=== PATIENT | female | born 1950 | race Caucasian/White ===

== ENCOUNTER 2019-05-28 17:50 | Inpatient (IN) | payer BC ==
[2019-05-28] VITALS (16 sets, daily range): BP systolic 94–182; BP diastolic 36–86
[~2019-05-28] VITALS: Ht 165.1 cm; Wt 56.7 kg
[2019-05-28 18:10] LABS: HEMATOCRIT 36.6 % (37.0-47.0); HEMOGLOBIN 11.9 gm/dL (12.0-15.0); MCH 29.7 pg (26.0-34.0); MCHC 32.4 g/dL (28.0-37.0); MCV 91.6 fL (80.0-100.0); PLATELET COUNT 367 thou/uL (150-400); RBC 3.99 mil/uL (4.20-5.00); RDW 13.8 % (10.5-14.5); WBC 20.2 thou/uL (4.0-11.0)
[2019-05-28 18:26] LABS: ALBUMIN 3.6 g/dL (3.4-5.0); BUN 5 mg/dL (7-18); CALCIUM 8.7 mg/dL (8.5-10.1); CHLORIDE 80 mmol/L (98-107); CO2 13 mmol/L (21-32); CREATININE 0.8 mg/dL (0.6-1.0); GLUCOSE 220 mg/dL (74-106); MAGNESIUM 1.8 mg/dL (1.8-2.4); SGOT 34 U/L (15-37); TOTAL BILIRUBIN 0.6 mg/dL (<0.1-1.0); TOTAL PROTEIN 7.2 g/dL (6.4-8.2)
[2019-05-28 18:28] LABS: ANION GAP 21 mmol/L (7-16)
[2019-05-28 18:29] LABS: SODIUM 114 mmol/L (136-145)
[2019-05-28 18:30] LABS: POTASSIUM 2.9 mmol/L (3.5-5.1)
[2019-05-28 18:49] LABS: SGPT < 6 U/L (30-65)
[2019-05-28 19:18] LABS: URINE POTASSIUM-RANDOM* 27.6 mmol/L
[2019-05-28 19:27] LABS: URINE BILIRUBIN NEGATIVE (Negative); URINE BLOOD 3+ (Negative); URINE CLARITY CLEAR; URINE COLOR YELLOW; URINE GLUCOSE-RANDOM* TRACE (Negative); URINE KETONES TRACE (Negative); URINE LEUKOCYTES-REFLEX NEGATIVE (Negative); URINE NITRITE-REFLEX NEGATIVE (Negative); URINE PROTEIN (DIPSTICK) NEGATIVE (Negative); URINE UROBILINOGEN 0.2 E.U./dl (0.2-1.0)
[2019-05-28 19:30] LABS: BACTERIA-REFLEX 1-9 Few /HPF (None Seen); CASTS None Seen /LPF (None Seen); CRYSTALS None Seen /LPF (None Seen); SQUAMOUS 0-3 Few /LPF (0-3); URINE RBC 0-2 Rare /HPF (0-2); URINE WBC-REFLEX None Seen /HPF (0-5)
[2019-05-28 19:33] LABS: ABSOLUTE NEUTROPHILS 13.7 thou/uL (1.4-8.2)
[2019-05-28 19:34] LABS: AMP/METHAMP Negative (Negative); BARBITURATES Negative (Negative); BENZODIAZEPINES Negative (Negative); COCAINE Negative (Negative); METHADONE Negative (Negative); OPIATES Negative (Negative); PCP Negative (Negative)
--- NOTE | 2019-05-28 21:00 | NUR ---
PT TRANSERED FROM ER TO ICU VIA CART ACCOMPANIED BY TRAY LINE SUPERVISOR. PT DROWSY, WITHDRAWS FROM PAIN FROM ALL EXTEMITIES BUT NOT FOLLOWING COMMANDS.VITAL SIGNS STABLE AT THIS MOMENT. PT WAS GIVEN CHG BATH. GRIMALDO WAS PLACED. CENTRAL LINE WAS PLACED AT RIGHT IJ BY SPECIAL EDUCATION SUPERVISOR MARILIA. PT'S DAUGHTER IN THE WAITING ROOM.
--- NOTE | 2019-05-28 21:51 | NUR ---
CONSULTED TO PLACE A PICC FOR A PATIENT NEEDING ADDITIONAL ACCESS. ORDER AND CONSENT NOTED. UNABLE TO FIND AN APPROPRIATE VEIN ON BILATERAL ARMS. THE RIGHT JUGULAR WAS WIDLEY PATENT. A #6F TRIPLE LUMEN POWER INJECTABLE CENTRAL LINE WAS PLACED PER HOSPITAL POLICY. LINE WAS TRIMMED TO 25CM AND ADVANCED WITHOUT DIFFICULTY. A STAT CHEST XRAY WAS ORDERED TO CONFIRM PLACEMENT.
[2019-05-29] VITALS (37 sets, daily range): BP systolic 77–112; BP diastolic 29–49
[2019-05-29 01:01] LABS: CALCIUM 7.9 mg/dL (8.5-10.1); CREATININE 0.4 mg/dL (0.6-1.0); POTASSIUM 4.5 mmol/L (3.5-5.1)
[2019-05-29 07:05] LABS: CALCIUM 8.1 mg/dL (8.5-10.1); CREATININE 0.5 mg/dL (0.6-1.0); POTASSIUM 4.2 mmol/L (3.5-5.1)
--- NOTE | 2019-05-29 07:07 | NUR ---
PT AWAKE AND CONFUSED THIS AM. PT ORIENTED TO SELF. PT COMPLAINING OF PAIN ON HER BACK AND BILATERAL UPPER AM. PT'S BP SYSTOLIC> 100 AND MAINTAINING MAP >65. REPORT GIVEN TO JESUS GUILLEN. CHART CHECK. PT PROGRESSING TOWARDS GOAL.
--- NOTE | 2019-05-29 08:05 | EKG ---
[place] [address] [facility] [place] [address] ELECTROCARDIOGRAM REPORT Name: TRISHA DOVE Room #: 239-P [facility] IN M.R.#: [id number] Admission: 05/28/19 Attend Phys: Zurdo Gallego Discharge: Date of : 50 Report #: [id number] THIS REPORT FOR: //name// [facility] ED Test Date: 2019-05-28 Test Time: 19:07:38 Pat Name: TRISHA DOVE Department: Room: 239 Gender: F Um Rn: gale : 1950 Requested By: Angélica Walter Order Number: [id number] MD: Vinicio Riojas Measurements Intervals [place] Rate: 95 P: 77 WV: 177 QRS: 75 QRSD: 100 T: 57 QT: 396 QTc: 498 Interpretive Statements Sinus rhythm Multiple ventricular premature complexes Borderline prolonged QT interval No previous ECG available for comparison Electronically Signed On 05-29-2019 8:05:14 EMERGENCY MANAGEMENT DIRECTOR by Vinicio Riojas [email or web address] <ELECTRONICALLY SIGNED> By: Vinicio Riojas MD, [facility] 05/29/19 [phone] Vinicio Riojas MD, FACC /EPI
--- NOTE | 2019-05-29 10:15 | NUR ---
CM ASSESSMENT: CASE OPENED FOR DC PLANNING. CLINICAL INFO REVIEWED. PT ADMITTED AFTER WITNESS SEIZURE AND FALL AT HOME WITH CONFIRMED HUMERUS FX. PT IS AWAKE BUT ESTLESS AND SOMEWHAT CONFUSED. DTR AND SPOUSE PROVIDE ASSESSMENT INFO. PT LIVES WITH SPOUSE AND WAS WORKING FT AND INDEPENDENT WITH ADLS PRIOR TO ADMIT. NO DME OR PREVIOUS HH. UNKNOWN DC NEEDS AT PRESENT. CASE MANAGEMENT AVAILABLE PRN TO COORDINATE ANY DC NEEDS.
[2019-05-29 13:07] LABS: ALBUMIN 2.8 g/dL (3.4-5.0); CALCIUM 8.4 mg/dL (8.5-10.1); CREATININE 0.6 mg/dL (0.6-1.0); PHOSPHORUS 3.3 mg/dL (2.5-4.9); POTASSIUM 4.3 mmol/L (3.5-5.1)
--- NOTE | 2019-05-29 17:56 | NUR ---
ASSESSMENTS AND INTERVENTIONS DOCCUMENTED. PATIENT MORE ALERT AND ASKING ABOUT THE CAUSE OF HER FALL. PATIENT COMPLAINING OF RIGHT ARM AND BACK PAIN. XRAY ORDERED PER AL-ABSI. PATIENT RESTING AND LABS RE DRAWN. FAMILY EDUCATED ABOUT POC AND MEDICATIONS. PATIENT COMPLAINING ABOUT PAIN AND MORPHINE ORDERED PER CHARLINE. BP DROPPED AND HURA PAGED. PATIENT TRANSFERRED FOR CT SCAN. PATIENT SEEN BY SPEECH THERAPY AND PUREED DIET ORDERED. PATIENT RESTING, STILL DROWSY. THE POC IS TO CONTINUE TO MONITOR LAB VALUES AND ELECTOLYTES
[2019-05-30] VITALS (20 sets, daily range): BP systolic 92–138; BP diastolic 34–52
[2019-05-30 05:51] LABS: ABSOLUTE NEUTROPHILS 9.1 thou/uL (1.4-8.2); BASOPHILS 0.2 % (0.0-2.0); EOSINOPHILS 0.1 % (0.0-3.0); HEMATOCRIT 24.6 % (37.0-47.0); LYMPHOCYTES 12.5 % (24.0-44.0); MCHC 33.7 g/dL (28.0-37.0); MCV 89.1 fL (80.0-100.0); MONOCYTES 7.8 % (1.0-8.0); POLYS 79.4 % (36.0-66.0); RBC 2.77 mil/uL (4.20-5.00); RDW 13.8 % (10.5-14.5); WBC 11.4 thou/uL (4.0-11.0)
[2019-05-30 06:00] LABS: HEMOGLOBIN 8.3 gm/dL (12.0-15.0); PLATELET COUNT 243 thou/uL (150-400)
[2019-05-30 06:02] LABS: CALCIUM 8.4 mg/dL (8.5-10.1); CREATININE 0.6 mg/dL (0.6-1.0); PHOSPHORUS 2.8 mg/dL (2.5-4.9); URIC ACID* 2.7 mg/dL (2.6-7.2)
--- NOTE | 2019-05-30 06:48 | NUR ---
Pt has had quiet night without problem. Tylenol given x1 for right upper arm pain. Elevating arm on pillow also helps relieve pain.
--- NOTE | 2019-05-30 08:49 | NUR ---
Assess due to pt admitted with hyponatremia and seizures. Pt well nourished with no significant medical hx prior to hospitalization. Rt clavicle fx from fall/confusion. Requires puree diet. Na levels improving. Will discontinue Ensure Enlive supplements and just offer ensure pudding at breakfast since pt on 1500ml fluid restriction. Low nutrition risk
[2019-05-30 12:06] LABS: IgA 94 mg/dL (87-352); IgG 764 mg/dL (700-1600); IgM 26 mg/dL (26-217)
--- NOTE | 2019-05-30 14:38 | NUR ---
PT IS ALERT AND ORIENTED X4. LUNGS ARE CLEAR TO DIMINISHED. FAMILY AT BEDSIDE FOR SUPPORT. PT COMPLAINS NO DOCTOR HAS CAME TO SEE HER PAGED DR. OLIVIER TO SPEAK WITH SPOUSE DUE TO PT FAMILY WANTING A PROGRESS REPORT. GRIMALDO TO DD WITH YELLOW URINE PRESENT. LABS IMPROVING. PAIN MEDS GIVEN FOR COMFORT ACETAMINOPHEN GIVEN FOR RELIEF. NSR ON THE MATERIALS ASSOCIATE. WILL CONTINUE TO ASSESS AND MONITOR PER NURSING. TRANSFER ORDERS AT THIS TIME PLACED IN THE COMPUTER
[2019-05-31 04:55] VITALS: BP 115/44
[2019-05-31 05:23] LABS: HEMATOCRIT 23.3 % (37.0-47.0); HEMOGLOBIN 7.7 gm/dL (12.0-15.0); MCH 29.7 pg (26.0-34.0); MCHC 33.1 g/dL (28.0-37.0); MCV 89.6 fL (80.0-100.0); RBC 2.6 mil/uL (4.20-5.00); WBC 11.9 thou/uL (4.0-11.0)
[2019-05-31 05:48] LABS: ALBUMIN 2.6 g/dL (3.4-5.0); CALCIUM 8.3 mg/dL (8.5-10.1); CREATININE 0.5 mg/dL (0.6-1.0); PHOSPHORUS 2.3 mg/dL (2.5-4.9); POTASSIUM 4.1 mmol/L (3.5-5.1)
[2019-05-31 08:51] VITALS: BP 148/50
[2019-05-31 11:53] LABS: % SATURATION 10 % (20-39); IRON 19 ug/dL (50-170); TIBC 181 ug/dL (250-450)
--- NOTE | 2019-05-31 11:55 | NUR ---
OT PRESENT. PHYSICAL THERAPY PRESENT, PT SAT ON SIDE OF BED THEN BECAME DIZZY. BACK TO BED. SR/ST, ROOM AIR, TOLERATING SMALL AMOUNTS OF BREAKFAST, FLUID RESTRICTION 1,500CC/24 HRS STARTING AT 0000. AT 1110, STRAIGHT CATHED TO OBTAIN CLEAN URINE SAMPLE. R UPPER EXTREMITY IN SLING. SPOUSE AND DAUGHTER AT BEDSIDE PROVIDING SUPPORT. REPORT GIVEN TO JESUS WATT.
[2019-05-31 12:21] LABS: URINE BILIRUBIN NEGATIVE (Negative); URINE BLOOD 1+ (Negative); URINE CLARITY CLEAR; URINE COLOR YELLOW; URINE GLUCOSE-RANDOM* NEGATIVE (Negative); URINE KETONES TRACE (Negative); URINE LEUKOCYTES-REFLEX TRACE (Negative); URINE NITRITE-REFLEX NEGATIVE (Negative); URINE PROTEIN (DIPSTICK) NEGATIVE (Negative); URINE SPECIFIC GRAVITY <= 1.005 (1.005-1.035); URINE UROBILINOGEN 0.2 E.U./dl (0.2-1.0)
[2019-05-31 12:33] LABS: SQUAMOUS 0-3 Few /LPF (0-3)
[2019-05-31 12:34] LABS: AMORPHOUS URATES Moderate /LPF (None Seen); BACTERIA-REFLEX 1-9 Few /HPF (None Seen); CASTS None Seen /LPF (None Seen); URINE RBC None Seen /HPF (0-2); URINE WBC-REFLEX 0-5 Rare /HPF (0-5)
--- NOTE | 2019-05-31 12:35 | NUR ---
TRANSFERRING PT PER WHEELCHAIR TO MED/SURG #437 WITH RN AND ACCOMPANIED BY DAUGHTER.
--- NOTE | 2019-05-31 13:36 | NUR ---
PT TRANSFERRED TO 4S FROM ICU TODAY. WORKED WITH PT AND ALITTEL DIZZY SITTING ON SIDE OF BED TODAY. ONGOING ASSESSMENT NEEDED BY THERAPY. LIVES WITH SPOUSE AND WAS INDEPENDENT AND WORKS FT. UPDATED 4S BINDERY MACHINE OPERATOR AND JESUS CMS.
[2019-05-31 13:40] VITALS: BP 124/67
[2019-05-31 16:00] VITALS: BP 145/90
[2019-05-31 17:10] LABS: KAPPA/LAMBDA RATIO 1.35 (0.26-1.65); LAMBDA FREE LIGHT CHAINS 9.6 mg/L (5.7-26.3)
[2019-05-31 19:49] VITALS: BP 131/49
[2019-06-01 08:13] LABS: HEMATOCRIT 22.4 % (37.0-47.0); HEMOGLOBIN 7.3 gm/dL (12.0-15.0); MCH 29.5 pg (26.0-34.0); MCHC 32.7 g/dL (28.0-37.0); MCV 90.3 fL (80.0-100.0); RBC 2.48 mil/uL (4.20-5.00); RDW 14.6 % (10.5-14.5); WBC 12.6 thou/uL (4.0-11.0)
[2019-06-01 08:25] LABS: ALBUMIN 2.6 g/dL (3.4-5.0); CALCIUM 8.6 mg/dL (8.5-10.1); CREATININE 0.5 mg/dL (0.6-1.0); PHOSPHORUS 2.7 mg/dL (2.5-4.9); POTASSIUM 3.9 mmol/L (3.5-5.1)
--- NOTE | 2019-06-01 12:07 | NUR ---
ASSUMED CARE OF THE PT AT 0700. PT COMPLAINS OF PAIN IN BOTH L AND R SHOULDER L ARM. PT HAS NOT HAD A BM SINCE 05/27. PT HAS A R TRIPLE LUMEN IN JUGULAR, CLEAN, DRY AND INTACT. PT AMBULATED TO CHAIR WITHOUT COMPLICATIONS OTHER THAN PAIN. SEIZURE PRECAUTIONS IN PLACE. PT IS NPO. TOPICAL OINTMENT ORDER FOR PAIN CONTROL PER DOCTOR, SEE EMAR. FLUID RESTRICTION OF 1500ML A DAY IN PLACE. EGD ORDERED AND CONSENT FORMS SIGNED. LUNGS ARE CLEAR. PEDAL PULSES ARE STRONG. FALL PRECAUTIONS IN PLACE, CALL LIGHT WITHIN REACH AND ALL FOUR BEDRAILS ARE UP. BED IN LOWEST POSITION. WILL CONTINUE TO MONITOR THE PT.
[2019-06-01 15:08] LABS: GLOBULIN TOTAL 2.3 g/dL (2.2-3.9); M-SPIKE Not Observed g/dL (Not Observed)
--- NOTE | 2019-06-01 15:09 | NUR ---
CM MET WITH PT AND DTR AT BEDSIDE THIS DAY THEY INDIATED THAT THEY ARE HOPING THAT PT WILL PROGRESS ENOUGH TO GO HOME WITH HOME HEALTH BUT THAT PT'S SPOUSE ISN'T ABLE TO PROVIDE PHYSICAL ASSIST IF IT'S NEEDED. CM PROVIDED SNF LIST FOR REVIEW. SHOULD PT BE MEDICALLY STABLE TO DISCHARGE HOME WITH HOME HEALTH OVER THE WEEKEND THEY ASKED THAT REFERRAL BE SENT TO [facility]. REFERRAL SENT [facility] PHONE: FAX:
[2019-06-01 16:55] VITALS: BP 131/49
[2019-06-01 20:10] VITALS: BP 121/66
[2019-06-02 05:11] LABS: HEMATOCRIT 22.2 % (37.0-47.0); HEMOGLOBIN 7.4 gm/dL (12.0-15.0); MCH 30.1 pg (26.0-34.0); MCHC 33.4 g/dL (28.0-37.0); MCV 90.2 fL (80.0-100.0); RBC 2.46 mil/uL (4.20-5.00); RDW 14.2 % (10.5-14.5); WBC 10.5 thou/uL (4.0-11.0)
[2019-06-02 05:20] LABS: CALCIUM 8.6 mg/dL (8.5-10.1); CREATININE 0.5 mg/dL (0.6-1.0)
[2019-06-02 06:50] VITALS: BP 126/59
--- NOTE | 2019-06-02 07:40 | NUR ---
ASSUMED PT CARE 06/02 @0700. PT A&O. AROUND 0730 PT PULLED IJ OUT ABOUT 3IN, WHOLE LINE WAS REMOVED AND PERIPHERAL IN L FOREARM WAS PLACED. STILL NO BM, HAD COLACE & MIRALAX ORDERED FOR TODAY. SODIUM UP TO 136 OF THIS MORNING, HGB 7.4 THIS MORNING. NO COMPLAINTS OF PAIN WHILE RESTING, JUST SORENESS IN ARM UPON EXERTION. REQUESTING SHOWER TODAY. NO OTHER SIGNIFICANT CHANGES.
[2019-06-02 08:33] VITALS: BP 144/67
[2019-06-02] MEDS ORDERED: ACETAMINOPHEN325 M1 PO (12:35)
[2019-06-02] MEDS ORDERED: PANTOPRAZOLE SO40 M1 PO (12:35)
[2019-06-02] MEDS ORDERED: VOLTAREN GEL 1100 G1 TOP (12:35)
[2019-06-02] MEDS ORDERED: COLACE 100 MG100 MG PO (12:35)
--- NOTE | 2019-06-02 16:30 | NUR ---
PATIENT IS BEING DISCHARGED HOME AT THIS TIME. INITIALLY SHE DID NOT FEEL LIKE SHE WAS STRONG ENOUGH TO GO HOME. THERAPY DID WORK WITH HER ( SEE PT NOTES). TOLD NURSE THEY WILL BE GOING HOME ONCE THE DAUGHTER GETS HERE.
[2019-06-02 16:55] VITALS: BP 131/49
--- NOTE | 2019-06-02 19:44 | NUR ---
patient discharged home at this time with and daughter. no complaints noted at time of discharge.
--- NOTE | 2019-06-04 09:39 | NUR ---
PT DISCHARGED ON SATURDAY 06/02 TO HOME WITH [facility] HH SPOKE WITH HEATHER IN INTAKE THEY DID NOT RECEIVE DC ORDERS/SUMMARY. FAXED DC ORDERS AND RECEIVED CONFIRMATION AND THEY WILL NOTIFY PT TIME OF VISITS.
--- NOTE | 2019-06-09 11:49 | HC ---
[facility] [place] [address] CONSULTATION Name: TRISHA DOVE Room #: 437-P [facility] IN .R.#: [id number] Admission: 05/28/19 Attend Phys: Zurdo Gallego Discharge: 06/02/19 Date of : 50 Report #: [id number] THIS REPORT FOR: //name// CC: [facility] physician/PCP Zurdo Gallego DATE OF SERVICE: 05/28/2019 NEPHROLOGY CONSULTATION REASON FOR CONSULTATION: Hyponatremia, critical with seizure. HISTORY OF PRESENT ILLNESS: This is a 68-year-old female who is normally in excellent health. She was in that excellent health through last evening. She awakened this morning and was having nausea and vomiting, which was intractable through much of the day. Multiple episodes occurred. She continued to get worse throughout the day, she began feeling worse. No apparent diarrhea. Unaware of any fevers, chills or sweats. By late afternoon, she was found down by her , he called EMS. She has had 3 seizures and it sounds like one was in transport or upon arrival in the Emergency Room, the other two were after arriving in the Emergency Room. She has no prior history of seizure disorder. She was treated with some Ativan intravenously and then has been started on some Keppra for the seizures. She is postictal at this time, so she is unable to provide me any history. Her daughter who is at the bedside is an excellent historian and able to help out with that history. The patient generally is in excellent health. She has no chronic medical conditions. She takes no chronic medications. The daughter is unaware of any prior episodes of hyponatremia or other electrolyte abnormalities. She does state that her mother drinks lots of tea and water on a daily basis, possibly 150-200 ounces total per day, at least by the daughter's prescription. She does it mostly because she feels constipated. She does not complain of thirst with that. She has no history of any thyroid disorders, diabetes mellitus, or other endocrinologic abnormalities. The patient and her daughter just got back from a [place] stay [place] [facility]. While there, they ate normally, drank bottled water, and felt well, and really had no issues during that 2 weeks' stay. [place] They say there were mosquitoes about, but they did not feel as though there were unusual exposures, otherwise. They got back to [facility] 3 days ago and the patient was acting normally on both May 26 and . They, as well as the patient's ate out last night and she had some fish. The only thing she had that her family did not have was some coleslaw last evening. In talking with the daughter, there is no evidence of other exposures, ingestions, and really nothing unusual as far as the way her mother appeared yesterday or how she was prior to getting ill this morning. Labs are all as noted below. [address] [address] CONSULTATION Name: TRISHA DOVE Room #: 437-P [facility] IN M.R.#: [id number] Admission: 05/28/19 Attend Phys: Zurdo Gallego Discharge: 06/02/19 Date of : 50 Report #: [id number] PAST MEDICAL HISTORY: Essentially healthy throughout. A few years ago, she had a broken arm and that was treated at [facility]. She has never been hospitalized for anything and had no surgery that the daughter is aware of. MEDICATIONS: She takes no regular medications. ALLERGIES: No known medical allergies. FAMILY HISTORY: Noncontributory. SOCIAL HISTORY: , lives in [place], [place]. She works for an insurance company. She just had a recent travel to [facility] as noted above. No other travel exposures. REVIEW OF SYSTEMS: Basically as above, was feeling perfectly well through last night. This morning, had the onset of nausea and vomiting that was intractable throughout the day. She tends to be constipated. No recent diarrhea. No fevers, chills or sweats. Usually, no difficulty voiding urine. PHYSICAL EXAMINATION: GENERAL: Postictal 68-year-old female seen in the Emergency Room. She is moving all extremities, but is postictal enough she is not able to respond much, certainly nothing verbally. VITAL SIGNS: Blood pressure 112/52, heart rate is 90, respiratory rate 20, oxygen saturation 98%. HEENT: Shows pupils are 5 mm and briskly reactive to light. Sclerae nonicteric. Oral mucosa is dry at this time. NECK: Supple without adenopathy, thyromegaly, JVD or bruit. CHEST: Has shallow respirations, but is otherwise clear. CARDIOVASCULAR: Heart has a regular rate and rhythm. ABDOMEN: Soft, has a few bowel sounds present, it is nontender. No organomegaly or masses. EXTREMITIES: Show no peripheral edema. She has 2+ peripheral pulses. SKIN: Shows a few small erythematous papules across her abdomen, which her daughter says are longstanding and related to some eczema. NEUROLOGIC: She is postictal as noted. LABORATORY DATA: Sodium 114, potassium 2.9, chloride 80, bicarbonate 13, BUN 5, creatinine 0.8, glucose 220, AST 34, ALT 6, total bilirubin 0.6, calcium 8.7, magnesium 1.8, total protein 7.2, albumin 3.6. CPK 471. Alcohol negative. Drug screen negative. White count 20.2 with a differential, 63 segs, 5 bands, 18 lymphs, 13 monos, 1 basophil, hemoglobin 11.9, hematocrit 36.6 with an MCV of 91.6, platelets 367,000. TH 3.08. Urinalysis, specific gravity of 1.020, pH 5.5, trace glucose, trace ketones, 3+ blood. Microscopic exam, 0-2 red cells, no white cells. Spot urine sodium 102, potassium 27, chloride 74. Urine [address] [address] CONSULTATION Name: DOVETRISHA Room #: 437-P [facility] IN M.R.#: [id number] Admission: 05/28/19 Attend Phys: Zurdo Gallego Discharge: 06/02/19 Date of : 50 Report #: [id number] osm[address] is [address] scan of the head was done, which showed no acute process. Chest x-ray was just done now and is pending. ASSESSMENT: 1. Hyponatremia, severe. This has been a very healthy female who began having nausea and vomiting, which was intractable throughout the day. If her sodium dropped this rapidly, it is truly a very acute change. It was fast enough and severe enough to cause her seizure. We have already started hypertonic saline, which were given a limited amount. As her urine specific gravity is higher than I would expect, we will follow the hypertonic saline with a small dose of furosemide to promote some isosthenuria. We will certainly monitor serum sodium changes very closely overnight and java j2ee application developer additional dosing based upon her response to her current therapy. Her thyroid looks to be okay, she looks euvolemic on exam. She does not have evidence of renal failure, heart failure, or liver failure. The other thing that raises a question is that her daughter talks about how much water she actually does drink, but if this is due to psychogenic polydipsia, we would expect a low urine specific gravity and that is not the case. 2. Seizure disorder related to the hyponatremia. Again, CT scan of the head was negative. We will aim for a moderate correction of the hyponatremia and then slowly correct it further to avoid additional PAIN MANAGEMENT PHYSICIAN injury and seizures. 3. Hypokalemia. It is possible this is also an acute shift related to her vomiting and nausea throughout the day. We will replace with some IV potassium at this point and recheck. 4. Metabolic acidosis. She has some ketones in her urine and certainly with her poor intake today, she could have some early ketoacidosis. With her vomiting, I would expect a bit more of a metabolic alkalosis, so we will see how she responds to her additional IV fluids. 5. Leukocytosis. May well be due to her seizure. We will review her chest x-ray when available. 6. Elevated CPK. We will recheck this again in the morning. Certainly, the seizure could probably be causing that and that is why she comes up with some dipstick positive hematuria without red cells in the urine. We will follow along to make sure this does not become more of a problem. PLAN: 1. 3% saline 250 mL at 50 mL per hour. 2. Follow that at the end of that infusion with a small dose of IV furosemide. 3. Recheck labs at the completion of that infusion with close followup of those labs. 4. Replace IV potassium. 5. Continue anti-seizure medication. [facility] [address] [place] [address] CONSULTATION Name: TRISHA DOVE Room #: 437-P [facility] IN .R.#: [id number] Admission: 05/28/19 Attend Phys: Zurdo Rodriguez Lorrainefrieda Discharge: 06/02/19 Date of : 50 Report #: [id number] 6. Review chest x-ray when available. 7. We will follow along very closely in the care of this acutely ill patient. <ELECTRONICALLY SIGNED> By: Severo Monreal MD 06/09/19 1149 10 0208 Severo Monreal MD /nt
== END 2019-06-02 19:45 | disposition home health service (06) | DRG 640 ==
LOC: ER 17:50 → ICU 19:13 → EROBS 19:13 → ICU 20:00 → 4S 05-31 13:14
PROVIDERS: Emergency Medicine; Emergency Medicine Emergency Medical Services; Hospitalist; Internal Medicine; ADMIT Hospitalist
PROC: 0DJ08ZZ Inspection of Upper Intestinal Tract, Via Natural or Artificial Opening Endoscopic (ICD-10-PCS; principal; 2019-06-01)
DX: E87.1 Hypo-osmolality and hyponatremia (principal); G92 Toxic encephalopathy; S42.201A Unspecified fracture of upper end of right humerus, initial encounter for closed fracture; M62.82 Rhabdomyolysis; D62 Acute posthemorrhagic anemia; E87.2 Acidosis; E87.6 Hypokalemia; D72.829 Elevated white blood cell count, unspecified; G40.909 Epilepsy, unspecified, not intractable, without status epilepticus; R63.1 Polydipsia; W18.39XD Other fall on same level, subsequent encounter; Z88.0 Allergy status to penicillin; Z79.899 Other long term (current) drug therapy; Z28.21 Immunization not carried out because of patient refusal; D50.9 Iron deficiency anemia, unspecified
CPT/HCPCS: 10078; 10100; 10203; 62110; 62900; 70005

== ENCOUNTER 2019-08-15 06:45 | Inpatient (IN) | payer OTHER ==
[2019-07-30 13:36] LABS: HEMATOCRIT 39.9 % (37.0-47.0); HEMOGLOBIN 13.2 gm/dL (12.0-15.0); MCH 30.5 pg (26.0-34.0); MCV 92.5 fL (80.0-100.0); RBC 4.31 mil/uL (4.20-5.00); WBC 5.3 thou/uL (4.0-11.0)
[2019-07-30 13:48] LABS: CREATININE 0.6 mg/dL (0.6-1.0); PROTIME 10.7 Seconds (9.3-11.4)
[2019-07-30 14:25] LABS: URINE BILIRUBIN NEGATIVE (Negative); URINE BLOOD NEGATIVE (Negative); URINE CLARITY CLEAR; URINE COLOR YELLOW; URINE GLUCOSE-RANDOM* NEGATIVE (Negative); URINE KETONES NEGATIVE (Negative); URINE LEUKOCYTES-REFLEX NEGATIVE (Negative); URINE NITRITE-REFLEX NEGATIVE (Negative); URINE PROTEIN (DIPSTICK) NEGATIVE (Negative); URINE SPECIFIC GRAVITY <= 1.005 (1.005-1.035); URINE UROBILINOGEN 0.2 E.U./dl (0.2-1.0)
[2019-08-15] VITALS (8 sets, daily range): BP systolic 91–124; BP diastolic 34–56
[~2019-08-15] VITALS: Ht 165.1 cm; Wt 59.0 kg
--- NOTE | ~2019-08-15 | O ---
[facility] [place] [address] [address] [place] [address] OPERATIVE REPORT Name: TRISHA DOVE Room #: 150-3 ADM IN M.R.#: [id number] Admission: 08/15/19 Attend Phys: Ascencion Travis Discharge: Date of : 50 Report #: [id number] THIS REPORT FOR: cc: Fara Casillas MD,Fara Hawk,Ascencion Carlton MD ~ THIS REPORT FOR: //name// CC: Ascencion Casillas DATE OF SERVICE: 08/15/2019 PREOPERATIVE DIAGNOSIS: Right 4-part proximal humeral fracture. POSTOPERATIVE DIAGNOSES: Right 4-part proximal humeral fracture with long head of biceps tendon tear and subluxation. PROCEDURE PERFORMED: Right reverse total shoulder arthroplasty with open biceps tenodesis. SURGEON: Ascencion Hawk MD WHALE FISHERMAN: Coco Kenney PA-C. ANESTHESIA: General with preoperative ultrasound-guided interscalene block. FLUIDS: 1100 mL crystalloid. ESTIMATED BLOOD LOSS: 75 mL. IMPLANTS UTILIZED: DePuy Delta Xtend 38+2 standard glenosphere with a +10 metaglene and a cemented size 12 monoblock stem with a size 1 epiphysis. DESCRIPTION OF PROCEDURE: After proper identification of the patient and operative site in preoperative holding area, the operative site was signed by myself. Prophylactic antibiotics were given. The patient elected to receive a block after anesthesia reviewed the risks, benefits, alternatives and complications. After a satisfactory block, the patient was brought back to the operative suite after induction of satisfactory general anesthesia, the patient was carefully positioned in the beach chair with head of bed elevated approximately 40 degrees. Head and neck were carefully positioned. The right shoulder was sterilely prepped and draped in the usual manner and supported with a TriCipher limb positioning system. Final skin draping was with Ioban. Anterior deltopectoral approach was planned. Skin was incised sharply. Full thickness skin flaps were developed. Cephalic vein was retracted laterally. [address] [address] OPERATIVE REPORT Name: DERRELLTRISHA Corinne Room #: 150-3 ADM IN M.R.#: [id number] Admission: 08/15/19 Attend Phys: Ascencion Travis Discharge: Date of : 50 Report #: [id number] Subdeltoid adhesions were carefully released from the patient's fracture starting at the level of the upper border of the pectoralis major. The long head of biceps tendon was followed proximally. It was subluxated within the displaced fracture, fragments and carefully freed from this. It was tenodesed to the undersurface of the pectoralis major tendon and then released distally and this was then followed more proximally. At this point, the greater and lesser tuberosities were attempted to be salvaged for operative repair during closure and there was no significant greater tuberosity that was still attached to the posterior cuff tendons to make this amenable to repair multiple fragmented head that was displaced was also noted and there was some residual lesser tuberosity fragment still in continuity with the subscapularis. The axillary nerve had been identified and protected throughout the entire procedure as well. At this point, the fracture fragments and remaining head were carefully excised to expose the glenoid. The biceps tendon was followed to the level of the labrum and then the labrum was excised circumferentially. There was delamination of the chondral surface on the glenoid and softening of the bone was noted more anterior inferior. The patient had a relatively petite bony structure. Anterior capsule was released off the subscapularis and excised as well. Again, the axillary nerve was carefully identified and protected throughout the entire exposure of the inferior shoulder. At this point, metaglene guide was utilized to advance a guide pin into the glenoid. Its position was checked both visually as well as by palpation. This was then reamed to remove any remaining chondral surface of the glenoid and then a step drill was utilized to drill for this and due to the soft nature of the bone, a +10 metaglene was carefully impacted into the scapula. Inferior and superior locking screws were applied and tightened and then a posterior locking screw followed by an anterior screw, so three of the screws were locking and these were tightened sequentially and then locked. At this point, a trial stem was utilized. This was reamed up to a size 12. The inferior tissues had been carefully released off the glenoid and a +1 size 12 stem provided the best canal fit. Trial polyethylenes were also utilized, but at this point a +2 38 glenosphere was positioned over a guidewire onto the metaglene and that was carefully positioned. The screw was rotated counterclockwise until a click was noted and the glenosphere was felt to be fully seated. It was then tightened and impacted three additional times where it felt like it was down on the metaglene and this was able to be well visualized. At this point, a size 12 monoblock stem was cemented into canal. A distal canal restrictor had been placed. The stem was prepared and two #2 FiberWires were placed through the anterior ____ for repair of the subscapularis. The canal was irrigated, dried, injected with bone cement and then the stem was positioned in approximately 10 degrees of retroversion. Once the cement had fully cured, trial polyethylene spacers were utilized and the +6 polyethylene provided the best overall fit and recreation of the anatomy and stability of the joint. Following this, two #2 FiberWires were utilized in a modified Lev-Michael technique to repair the remaining subscapularis. The shoulder was stable throughout a full range of motion. No propensity to dislocate was noted. Joint was thoroughly irrigated [facility] [address] [place] [address] OPERATIVE REPORT Name: TRISHA DOVE Corinne Room #: 150-3 ADM IN M.R.#: [id number] Admission: 08/15/19 Attend Phys: Ascencion Travis Discharge: Date of : 50 Report #: [id number] with normal saline. One gram vancomycin powder was utilized, half at deep, half at more superficial. At this point, the wound was closed in layers. A 0 Vicryl was used to close deltopectoral interval, 2-0 Vicryl for the subcutaneous tissues, final skin closure with running Monocryl and Dermabond and a +6 polyethylene liner had been chosen. Qualified web production assistant utilized throughout the entire procedure to aid in patient limb positioning, retraction of soft tissues, instrument passage, closure and sling and dressing application. Sling will be utilized for 4 weeks postoperatively. By: 1329 1400 Ascencion Hawk MD /nt
[~2019-08-15 06:45] MED LIST: ACETAMINOPHEN325 M1 PO; ARNICA GEL TOP; COLACE 100 MG100 MG PO; PANTOPRAZOLE SO40 M1 PO; TYLENOL PM EX-1 EACH PO; VOLTAREN GEL 1100 G1 TOP
--- NOTE | 2019-08-15 17:23 | NUR ---
PT ARRIVED TO UNIT APPROX 15:00. ESCORTED BY HOSPITAL STAFF FROM PACU. REPORT WAS GIVEN TO JIMMY LEE WHO SETTLED PATIENT WITH ASSISTANCE FROM NURSING TECH. REPORT WAS RECEIVED FROM JIMMY LEE CHARGE NURSE AT 16:40 REGARDING PT. PT WAS ASSESSED AND ADMISSION COMPLETED. PT DENIES PAIN AT THIS TIME. STATES SHE HAS SOME SENSATION UNDER RIGHT ARM, NUMB THROUGHOUT EXTREMITY BUT ABLE TO FEEL SENSATION TOWARDS RIGHT WRIST. UNABLE TO SQUEEZE HAND AT THIS TIME. RIGHT ARM IMMOBILIZER IN PLACE, PATIENT VERBALIZES UNDERSTANDING OF IMMOBILIZER USE. PT HAS POLAR PACK IN PLACE AND CURRENTLY IN USE. DAUGHTER AT BEDSIDE. PT TOLERATING CLEAR LIQUIDS AT THIS TIME. FALL PRECAUTIONS IN PLACE, VERBALIZES ACCURATE UNDERSTANDING ON FALL PRECAUTIONS.
[2019-08-16] VITALS: BP 91/31
[2019-08-16 06:06] LABS: HEMATOCRIT 29.5 % (37.0-47.0); HEMOGLOBIN 9.6 gm/dL (12.0-15.0)
--- NOTE | 2019-08-16 07:01 | NUR ---
PT AOX4. PT REPORTS PAIN IN RIGHT SHOULDER. PT RECEIVING PRN IV MORPHINE Q1HR, PRN PO OXYCODONE Q4HR AND PRN PO OXYCODONE Q6HR. PT AMBULATING TO BEDSIDE COMMODE WITH X1 ASSIST. PT TOLERATING PO INTAKE WELL SHE ADVANCES HER DIET WITHOUT ISSUE. ASSISTED PT WITH BLADDER TRAINING BY APPLYING PRESSURE TO BLADDER, APPLYING HEAT TO ABDOMEN, PROVIDING REST PERIODS BETWEEN VAGAL MANEUVERS. PT ABLE TO VOID SUCCESSFULLY, BLADDER NONDISTENDED, PT REPORTS RELIEF. PT ENCOURAGED TO NOTIFY STAFF FOR ALL NEEDS. CALL LIGHT WITHIN REACH, BED ALARM ON, BED IN LOWEST POSITION. WILL CONTINUE TO MONITOR.
[2019-08-16 07:04] LABS: POTASSIUM 4.8 mmol/L (3.5-5.1)
[2019-08-16 08:15] VITALS: BP 92/29
[2019-08-16 10:02] VITALS: BP 97/35
--- NOTE | 2019-08-16 10:25 | NUR ---
ASSESSMENT-PT LIVES AT HOME WITH HER BUT HE IS UNABLE TO PHYSICALLY ASSIST HER AT HOME. PRIOR TO SURGERY PT DROVE, WAS INDEPENDENT OF ADLS AND AMBULATION. PT DID ALL OF THE COOKING, CLEANING AND LAUNDRY. PT HAS HAD [facility] IN THE PAST. PT HAS A WALK-IN SHOWER WITH A [employer] FOR ASSIST. PT HAD TO RETIRE FROM HER JOB EARLIER THIS YEAR. [employer] BUT SHE SAYS SHE HAD TO HELP HIM SOME AT HOME. 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 PT IS INTERESTED IN SK[facility]ED [facility] AT [facility]. WILL SEND A REFERRAL TO THEM ONCE THERPIES HAVE EVALUATED PT. FOLLOWING TO ASSIST WITH DC PLANNING.
[2019-08-16 12:49] LABS: HEMATOCRIT 27.3 % (37.0-47.0); HEMOGLOBIN 8.9 gm/dL (12.0-15.0)
--- NOTE | 2019-08-16 15:37 | NUR ---
FAXED THERAPY EVALS TO [facility] AND SHE SAYS PT TOURED THERE PRIOR TO HER SURGERY. THEY WILL SUBMIT FOR AUTH.
--- NOTE | 2019-08-16 17:34 | NUR ---
RECEIVED CALL FROM [facility] AND SHE SAYS THEY CAN ACCEPT PT ONCE MEDICALLY READY FOR DC AND THEY HAVE INSURANCE AUTHORIZATION.
[2019-08-16 20:01] VITALS: BP 116/45
--- NOTE | 2019-08-16 20:12 | NUR ---
ASSUMED PATIENT CARE AT 1645. PATIENT C/O OF PAIN, PRN PAIN MEDS GIVEN. ULTRASOUND WAS COMPLETED, PENDING RESULTS. PATIENT UP TO BSC WITH NURSE ASSIST. POLAR NANNETTE FOR THE SHOULDER IN PLACE. BILATERAL YOAN HOSE AND SCD'S IN PLACE. FALL PRECAUTIONS IN PLACE, CALL LIGHT WITHIN REACH.
--- NOTE | 2019-08-17 03:44 | NUR ---
ASSUMED CARE OF PT AT 1900HRS. PT IS AOX4 AND LETS NEEDS BE KNOWN. FALL PRECAUTION IN PLACE. PT REPORTED PAIN AND WAS TREATED WITH PRN PAIN MEDS. PT APPEARS TO BE ANXIOUS, PLEASE CONSIDER ANTI-ANXIETY MEDS. PT WAS ABLE TO GET COMGORTABLE AND SLEEP PART OF THE SHIFT. VSS AND NO S/S OF ACUTE DISTRESS. WILL CONTINUE TO MONITOR.
[2019-08-17 06:23] LABS: ABSOLUTE NEUTROPHILS 6.8 thou/uL (1.4-8.2); BASOPHILS 0.5 % (0.0-2.0); EOSINOPHILS 0.5 % (0.0-3.0); HEMATOCRIT 24.9 % (37.0-47.0); HEMOGLOBIN 8.3 gm/dL (12.0-15.0); LYMPHOCYTES 15.5 % (24.0-44.0); MCH 30.6 pg (26.0-34.0); MCHC 33.3 g/dL (28.0-37.0); MONOCYTES 9.4 % (1.0-8.0); PLATELET COUNT 241 thou/uL (150-400); POLYS 74.1 % (36.0-66.0); RBC 2.71 mil/uL (4.20-5.00); RDW 14.5 % (10.5-14.5); WBC 9.1 thou/uL (4.0-11.0)
[2019-08-17 06:37] LABS: CALCIUM 8.2 mg/dL (8.5-10.1); CREATININE 0.5 mg/dL (0.6-1.0)
[2019-08-17 06:45] LABS: POTASSIUM 3.7 mmol/L (3.5-5.1)
[2019-08-17 09:03] VITALS: BP 126/72
[2019-08-17] MEDS ORDERED: IRON 100 PLUS1 EACH PO (11:25)
[2019-08-17] MEDS ORDERED: MIRALAX17 GM PO (11:25)
--- NOTE | 2019-08-17 12:28 | NUR ---
PT AOX4, VSS, PAIN CONTROLLED WITH ORAL ANALGESIC. PT IS SCHEDULED FOR DOUBLE END [facility]PER[facility] AT 1PM TO TRANSPORT TO [facility]. PT IV WAS REMOVED, AMBULATES WITH WALKER AND STANDBY ASSISTANCE. PT TOLERATING DIET, CALL LIGHT IN REACH, WILL CONTINUE TO MONITOR.
--- NOTE | 2019-08-17 12:53 | NUR ---
DISCHARGE ORDERS COMPLETED PER ADMITTING PHYSICIAN AND FAXED TO [facility] ADMISSIONS. CHART COPIED PER SENIOR OCCUPATIONAL THERAPIST. TRANSPORTATION ARRANGED PER [facility], 1300 HOURS. CALL PLACED TO [facility] TO NOTIFY OF PATIENT DISCHARGE AND TRANSPORTATION TIME. UNIT RN NOTIFIED, CONTACT NUMBER FOR REPORT PROVIDED. UNIT SW AWARE.
--- NOTE | 2019-08-17 12:56 | NUR ---
SW reviewed chart and spoke with nursing and attending physician. Pt is medically stable for discharge to [facility] today. SW received call from [facility] stating they have insurance authorization and can accept pt today. operations planner to fax finalized discharge orders/summary to facility when available. Wheelchair van transportation scheduled for 1300 per SNF's arrangements. Pt and family notified and are agreeable with plan. Chart copy requested. No additional SW needs identified at this time, but is available to assist should needs arise.
== END 2019-08-17 14:00 | DRG 483 ==
LOC: PRE 06:45 → TBA 07:48 → 4S 07:48 → PRE 10:10 → 4S 14:58 → 4N 08-16 17:38
PROVIDERS: Hospitalist; Physician Assistant Surgical; ADMIT Orthopaedic Surgery Sports Medicine
PROC: 0RRJ00Z Replacement of Right Shoulder Joint with Reverse Ball and Socket Synthetic Substitute, Open Approach (ICD-10-PCS; principal; 2019-08-15)
DX: S42.201A Unspecified fracture of upper end of right humerus, initial encounter for closed fracture (principal); E87.1 Hypo-osmolality and hyponatremia; E87.2 Acidosis; D62 Acute posthemorrhagic anemia; M75.21 Bicipital tendinitis, right shoulder; S43.001A Unspecified subluxation of right shoulder joint, initial encounter; E87.6 Hypokalemia; Z88.0 Allergy status to penicillin; Z79.899 Other long term (current) drug therapy; X58.XXXA Exposure to other specified factors, initial encounter; Y93.89 Activity, other specified; Y92.89 Other specified places as the place of occurrence of the external cause; Y99.8 Other external cause status
CPT/HCPCS: 10102; 10790; 50010; 50101; 50149; 50172; 50386; 50417; 50697; 50733; 50935; 51130; 51225; 51320; 52001; 52138; 53000; 53078; 54118; 55430; 56524; 56525; 56526; 56530; 57095; 57103; 62110; 62900; 64043; 65060; 70005